=== PATIENT | male | born 1960 | race Caucasian/White ===

== ENCOUNTER 2024-09-19 12:04 | Inpatient (IN) | payer MEDICAID ==
[2024-09-19 13:14] LABS: BASOPHILS ABSOLUTE AUTO 0.05 K/uL (0.00-0.10); BASOPHILS PERCENT AUTO 0.4 % (0.1-1.3); HEMATOCRIT 43.7 % (38.4-49.7); HEMOGLOBIN 15.1 g/dL (12.9-16.9); IMMATURE GRAN ABSOLUTE AUTO 0.06 K/uL (0.00-0.23); IMMATURE GRAN PERCENT AUTO 0.4 % (0.0-0.7); LYMPHOCYTES ABSOLUTE AUTO 1.77 K/uL (0.8-3.3); LYMPHOCYTES PERCENT AUTO 12.9 % (11.4-47.7); MEAN CORPUSCULAR HEMOGLOBIN 30.6 pg (31.6-35.5); MEAN CORPUSCULAR HGB CONC 34.6 g/dL (31.6-35.5); MEAN CORPUSCULAR VOLUME 88.5 fL (81.4-99.0); MONOCYTES ABSOLUTE AUTO 0.67 K/uL (0.20-0.90); MONOCYTES PERCENT AUTO 4.9 % (3.3-12.6); NEUTROPHILS ABSOLUTE AUTO 10.12 K/uL (1.0-7.6); NEUTROPHILS PERCENT AUTO 73.4 % (40.0-78.1); PLATELET COUNT,PLT 313 K/uL (130-375); RED BLOOD CELL COUNT 4.94 M/uL (4.14-5.76); WHITE BLOOD CELL COUNT,WBC 13.8 K/uL (3.2-11.0)
[2024-09-19 13:34] LABS: A/G RATIO 1.1 (1.2-2.2); ALANINE AMINOTRANSFERASE,ALT 25 U/L (12-78); ALBUMIN 3.8 g/dL (3.4-5.0); ALKALINE PHOSPHATASE 91 U/L (46-116); ANION GAP 12.1 mmol/L (5.0-14.0); ASPARTATE AMNIOTRANSFERASE,AST 16 U/L (15-37); BILIRUBIN TOTAL 0.3 mg/dL (0.2-1.0); BLOOD UREA NITROGEN,BUN 16 mg/dL (7-18); C-REACTIVE PROTEIN 1.67 mg/dL (<0.50); CALCIUM 9.2 mg/dL (8.5-10.1); CARBON DIOXIDE,CO2 28 mmol/L (21-32); CHLORIDE,CL 101 mmol/L (100-108); EST CRCL DRUG DOSING (CG) 71.25 mL/min; ESTIMATED GFR 84 mL/min (>60); GLUCOSE RANDOM 125 mg/dL (74-106); POTASSIUM,K 4.3 mmol/L (3.6-5.2); PROTEIN TOTAL,TP 7.2 g/dL (6.4-8.2); SODIUM,NA 141 mmol/L (140-148)
[2024-09-19] MEDS: Sodium Chloride 0.9% 1,000 ML IV SCH ×3 (13:36→18:20)
[2024-09-19] MEDS: Ondansetron 4 MG/2 ML SDV IVPUSH ONE (13:36)
[2024-09-19] MEDS: Sodium Chloride 0.9% 80 ML IV ONE (14:27)
[2024-09-19] MEDS: Iopamidol 612 MG/ML 100 ML Bottle IV PRN (14:27)
[2024-09-19] MEDS: Sodium Chloride 0.9% 10 ML Syringe FLUSH PRN (14:27)
[2024-09-19] MEDS: Ampicillin/Sulbactam Na 1.5 GM in Sodium Chloride 0.9% 50 ML IV SCH (16:39)
[2024-09-19] MEDS ORDERED: Sodium Chloride 0.9% 10 ML Syringe FLUSH PRN (17:49)
[2024-09-19] MEDS ORDERED: Acetaminophen 325 MG Tab PO PRN (17:49)
[2024-09-19] MEDS ORDERED: Cyclobenzaprine 10 MG Tab PO PRN (17:49)
[2024-09-19] MEDS ORDERED: Polyethylene Glycol 3350 Powder 17 GM Packet PO PRN (17:49)
[2024-09-19] MEDS: Enoxaparin 40 MG/0.4 ML Syringe SUBCUT SCH (18:43)
[2024-09-19] MEDS: oxyCODONE 5 MG Tab PO PRN (18:43)
[2024-09-20] MEDS: Ondansetron 4 MG/2 ML SDV IV PRN (00:25)
[2024-09-20 05:48] LABS: HEMATOCRIT 39.3 % (38.4-49.7); HEMOGLOBIN 13.5 g/dL (12.9-16.9); MEAN CORPUSCULAR HEMOGLOBIN 30.8 pg (31.6-35.5); MEAN CORPUSCULAR HGB CONC 34.4 g/dL (31.6-35.5); MEAN CORPUSCULAR VOLUME 89.5 fL (81.4-99.0); RED BLOOD CELL COUNT 4.39 M/uL (4.14-5.76); WHITE BLOOD CELL COUNT,WBC 12.7 K/uL (3.2-11.0)
[2024-09-20 06:05] LABS: ANION GAP 7.6 mmol/L (5.0-14.0); CALCIUM 8.5 mg/dL (8.5-10.1); CREATININE 0.9 mg/dL (0.8-1.3); EST CRCL DRUG DOSING (CG) 79.17 mL/min; MAGNESIUM 1.5 mg/dL (1.8-2.4); POTASSIUM,K 5.1 mmol/L (3.6-5.2)
[2024-09-20] MEDS: atorvaSTATin 10 MG Tab PO SCH (08:37)
[2024-09-20] MEDS: Magnesium Oxide 400 MG Tab PO SCH (08:38)
[2024-09-20] MEDS: Lisinopril 10 MG Tab PO SCH (08:38)
[2024-09-20] MEDS: Magnesium Sulf/Wat 2 GM/50 mL 2 GM in Premix Bag 1 BAG IV SCH (08:42)
[2024-09-20] MEDS ORDERED: Non-Formulary Medication 1 Each (Simvastatin [Simvastatin] 20 MG Tablet) PO SCH (09:00)
[2024-09-20] MEDS: LORazepam 0.5 MG Tab PO PRN (13:38)
[2024-09-20] MEDS: traMADol 50 MG Tab PO PRN (16:55)
[2024-09-20] MEDS: Ibuprofen 400 MG Tab PO PRN (16:56)
[2024-09-20] MEDS: Enoxaparin 40 MG/0.4 ML Syringe SUBCUT SCH (16:58)
[2024-09-21 05:55] LABS: HEMATOCRIT 38.5 % (38.4-49.7); HEMOGLOBIN 13.1 g/dL (12.9-16.9); MEAN CORPUSCULAR HEMOGLOBIN 30.5 pg (31.6-35.5); MEAN CORPUSCULAR VOLUME 89.7 fL (81.4-99.0); RED BLOOD CELL COUNT 4.29 M/uL (4.14-5.76); WHITE BLOOD CELL COUNT,WBC 8.8 K/uL (3.2-11.0)
[2024-09-21 06:04] LABS: ANION GAP 7.1 mmol/L (5.0-14.0); CREATININE 0.8 mg/dL (0.8-1.3); EST CRCL DRUG DOSING (CG) 89.06 mL/min; MAGNESIUM 2.1 mg/dL (1.8-2.4)
[2024-09-21 11:14] VITALS: BP 148/75; PULSE 66
== END 2024-09-21 11:30 | disposition home or self-care (01) | DRG 392 ==
LOC: JP.ED 12:04 → JP.MS 16:19
PROVIDERS: ADMIT Hospitalist; ATTEND Hospitalist
DX: K57.32 Diverticulitis of large intestine without perforation or abscess without bleeding (principal); M54.16 Radiculopathy, lumbar region; E86.0 Dehydration; E78.00 Pure hypercholesterolemia, unspecified; I10 Essential (primary) hypertension; K59.09 Other constipation; K59.00 Constipation, unspecified; H54.7 Unspecified visual loss; I71.40 Abdominal aortic aneurysm, without rupture, unspecified; Z88.8 Allergy status to other drugs, medicaments and biological substances; Z79.899 Other long term (current) drug therapy; Z98.890 Other specified postprocedural states; Z87.891 Personal history of nicotine dependence
CPT/HCPCS: 36415; 74177; 74177-26; 80048; 80053; 82150; 83690; 83735; 85025; 85027; 86140; 96361; 96374; 99222; 99232; 99238; 99285-25; A9270-GY; J0295; J1650; J2405; J3475; J7030; Q9967

== ENCOUNTER 2024-12-25 08:03 | Day surgery (SDC) | payer MEDICARE, MEDICAID ==
[~2024-12-25 08:03] MED LIST: Midazolam 1 MG/ML 2 ML SDV ONE; Propofol 200 MG/20 ML SDV ONE; fentaNYL 50 MCG/ML SDV ONE
[2024-12-25] MEDS: Lactated Ringers 1,000 ML IV SCH (08:38)
[2024-12-25 10:37] VITALS: BP 153/77; PULSE 55
== END 2024-12-25 11:02 | disposition home or self-care (01) ==
LOC: JP.SDS 08:03
PROVIDERS: ATTEND Surgery
DX: K57.30 Diverticulosis of large intestine without perforation or abscess without bleeding (principal); I10 Essential (primary) hypertension; E78.5 Hyperlipidemia, unspecified
CPT/HCPCS: 45378; J2250; J2704; J3010; J7120; 00812-QZ